=== PATIENT | female | born 1945 | race Caucasian/White ===

== ENCOUNTER 2017-03-21 20:33 | Emergency (ER) | payer MEDICARE, BC ==
[2017-03-21 20:50] VITALS: PULSE 50; RESP 18
--- NOTE | 2017-03-21 21:15 | ED ---
Upper Extremity HPI - General Chief Complaint: Extremity Injury, Upper Stated Complaint: Bruising on Arm-PT on Plavix Time Seen by Provider: 03/21/17 21:03 Source: patient Mode of arrival: ambulatory Limitations: no limitations - History of Present Illness Initial Comments: Is a 72-year-old woman who presents with complaint that she is having right forearm pain and ecchymosis. She states that she woke with these symptoms and that they seem to have worsened throughout the course of the evening. Patient states that pain is constant, moderate, aching. It is made worse if she presses on the area. She has not noted relieving factors. She states that she takes Percocet but it only helps a little bit. Patient denies any associated symptoms, she is not having fever or chills. She denies chest pain, dyspnea, palpitations, lightheadedness or syncope. She denies any weakness or numbness of the extremity. She does not recall any trauma over the previous few days that would've brought this on. She does state that she takes Plavix. Complaint: Injury to:: right, forearm Onset/Timin -: days(s) Other Extremity Injury: Forearm: Right Other Injuries: none Handedness: right Place: home Improves With: none Worsens With: other Context: other (Known) Associated Symptoms: denies other symptoms - Related Data Home Medications Medication Instructions Recorded Confirmed Allopurinol [Allopurinol] 300 mg PO DAILY 12/26/13 03/21/17 Budesonide-Formot 160-4.5 Mcg 2 puff INHALATION RT-BID 12/26/13 03/21/17 [Symbicort 160-4.5 Mcg Inhaler] Calcium Carbonate/Vitamin D3 1 tab PO DAILY 12/26/13 03/21/17 [Caltrate 600 + D Tablet] Cholecalciferol [Vitamin D3] 1,000 unit PO DAILY 12/26/13 03/21/17 FLUoxetine HCL [PROzac] 20 mg PO TID 12/26/13 03/21/17 Furosemide [Lasix] 20 mg PO QAM 12/26/13 03/21/17 Gemfibrozil [Lopid] 1,200 mg PO QAM 12/26/13 03/21/17 Isosorbide Mononitrate [Imdur] 30 mg PO DAILY 12/26/13 03/21/17 Metoprolol Tartrate [Metoprolol 50 mg PO BID 12/26/13 03/21/17 Tartrate] Nitroglycerin [Nitromist] 4.1 gm TL Q5M PRN 12/26/13 03/21/17 [place]-3 Fatty Acids [[place]-3] 2,000 mg PO DAILY 12/26/13 03/21/17 Albuterol Nebulized [Ventolin 2.5 mg INHALATION RT-TID PRN 03/21/17 03/21/17 Nebulized] Albuterol Sulfate [Proair Hfa] 1 - 2 puff INHALATION RT-Q6H PRN 03/21/17 Aspirin 81 mg PO DAILY 03/21/17 03/21/17 Janie-C 500mg 500 mg PO DAILY 03/21/17 03/21/17 Fluticasone Propionate [Flonase 1 spray EA NOSTRIL DAILY 03/21/17 03/21/17 Allergy Relief] Gemfibrozil [Lopid] 600 mg PO HS 03/21/17 03/21/17 Insulin NPH Human Isophane 6 unit SQ AC-BID 03/21/17 03/21/17 [humuLIN N] Insulin Regular [HumuLIN R] See Protocol SQ AC-TID PRN 03/21/17 03/21/17 Ipratropium Nebulized [Atrovent 0.5 mg INHALATION RT-QID PRN 03/21/17 03/21/17 Nebulized] Levothyroxine Sodium [Synthroid] 112 mcg PO DAILY 03/21/17 03/21/17 Pantoprazole [Protonix] 40 mg PO DAILY 03/21/17 03/21/17 Potassium Chloride [Klor-Con 20] 20 meq PO DAILY 03/21/17 03/21/17 oxyCODONE-APAP 10-325MG [Percocet 1 tab PO Q4H PRN 03/21/17 03/21/17 10-325 mg] Allergies Allergy/AdvReac Type Severity Reaction Status Date / Time acetaminophen Allergy Rash/Hives Verified 03/21/17 21:40 [From Tylenol-Codeine #3] adenosine Allergy Anaphylaxis Verified 03/21/17 21:40 codeine phosphate Allergy Rash/Hives Verified 03/21/17 21:40 [From Tylenol-Codeine #3] diclofenac sodium Allergy Rash/Hives Verified 03/21/17 21:40 [From Voltaren] Iodinated Contrast- Oral and Allergy Dyspnea Verified 03/21/17 21:40 IV Dye iodine Allergy Rash/Hives Verified 03/21/17 21:40 latex Allergy Rash/Hives Verified 03/21/17 21:40 lisinopril Allergy Swelling Verified 03/21/17 21:40 morphine Allergy Confusion Verified 03/21/17 21:40 nickel [Nickel] Allergy Rash/Hives Verified 03/21/17 21:40 pneumococcal vaccine Allergy Unknown Verified 03/21/17 20:50 tetanus and diphtheria Allergy Unknown Verified 03/21/17 21:40 toxoids [tetanus & diphtheria toxoids] theophylline Allergy Anaphylaxis Verified 03/21/17 21:40 tioconazole [From Monistat 1] Allergy Rash/Hives Verified 03/21/17 21:40 tolmetin sodium Allergy Rash/Hives Verified 03/21/17 21:40 [From Tolectin] metoclopramide HCl AdvReac Unknown Verified 03/21/17 21:40 [From Reglan] Review of Systems ROS Statement: Those systems with pertinent positive or pertinent negative responses have been documented in the HPI. ROS Other: All systems not noted in ROS Statement are negative. Constitutional: Denies: fever, chills, weakness Respiratory: Denies: cough, dyspnea Cardiovascular: Denies: chest pain, palpitations, syncope Skin: Denies: rash Neurological: Denies: weakness, numbness, paresthesias Hematological/Lymphatic: Reports: other (Plavix). Denies: easy bleeding Past Medical History Past Medical History: Asthma, Coronary Artery Disease (CAD), Diabetes Mellitus, Hyperlipidemia, Hypertension Additional Past Medical History / Comment(s): Lupus, spina bifida (mild) History of Any Multi-Drug Resistant Organisms: None Reported Past Surgical History: Orthopedic Surgery Additional Past Surgical History / Comment(s): surgical support of uterus, intestinal bypass, wrist surgery, cyctocele and left ovary revoed, arthroscopy knee surgery, right knee, anterior cervical discectomy with fusion, triple heart bypass, liver biopsy, myeleogram, colon scope, electormyography both arms , bilateral knee replacement. hip replacement Past Psychological History: Anxiety Smoking Status: Never smoker Past Alcohol Use History: Occasional Past Drug Use History: None Reported General Exam Limitations: no limitations General appearance: alert, in no apparent distress Respiratory exam: Present: normal lung sounds bilaterally. Absent: respiratory distress, wheezes, rales, rhonchi, stridor Cardiovascular Exam: Present: regular rate, normal rhythm, normal heart sounds Extremities exam: Present: full ROM, tenderness (Moderate tenderness over the proximal right ulna. There is no palpable deformity or step-off.), normal capillary refill. Absent: normal inspection (Ecchymosis and a small amount of soft tissue swelling, see the skin exam as well.), joint swelling Skin exam: Present: warm, dry, intact, normal color, other (There is ecchymosis to the posterior aspect of the right forearm just distal to the right elbow mainly over the posterior and ulnar aspect. Approximately 8 cm roughly ovoid area.) Course Vital Signs 03/21/17 20:46 Temperature 97.4 F L Pulse Rate 50 L Respiratory 18 Rate Blood Pressure 181/80 O2 Sat by Pulse 98 Oximetry - Reevaluation(s) Reevaluation #1: 03/21/17 21:20 Patient declines analgesics Disposition Clinical Impression: Contusion of forearm, right Disposition: HOME SELF-CARE Condition: Good Instructions: Contusion in Adults (ED) Referrals: Brandon Wu DO [Primary Care Provider] - 1-2 days
--- NOTE | 2017-03-21 21:39 | XR ---
EXAMINATION TYPE: XR forearm RT DATE OF EXAM: 03/21/2017 COMPARISON: NONE HISTORY: Pain TECHNIQUE: 2 views FINDINGS: I see no fracture nor dislocation. Wrist joint and elbow joint appear intact. IMPRESSION: Negative right forearm exam.
--- NOTE | 2017-03-21 22:18 | US ---
EXAM: US Duplex Right Upper Extremity Veins CLINICAL HISTORY: Reason: Pain TECHNIQUE: Real-time ultrasound scan of the veins of the right upper extremity with color Doppler flow, spectral waveform analysis and compression. COMPARISON: No relevant prior studies available. FINDINGS: Deep veins: Unremarkable. No DVT in the internal jugular, subclavian, axillary, or brachial veins. The veins are compressible with normal color flow and augmentation. Superficial veins: Unremarkable. No thrombus in the visualized basilic and cephalic veins. Soft tissues: At the area of the patient's bruising, there is a well- circumscribed, nonvascular, hypoechoic, parallel, ovoid lesion, measuring approximately 0.9 x 0.2 x 0.4 cm, likely representing a hematoma. IMPRESSION: 1. No evidence of DVT. 2 At the area of the patient's bruising there is a 0.9 cm hypoechoic lesion, as described above, likely representing a hematoma.
[2017-03-21 22:51] VITALS: BP 156/74; TEMP 97.9
== END 2017-03-21 22:51 | disposition home or self-care (01) ==
LOC: EC 20:33
DX: S50.11XA Contusion of right forearm, initial encounter (principal); E78.5 Hyperlipidemia, unspecified; I10 Essential (primary) hypertension; I25.10 Atherosclerotic heart disease of native coronary artery without angina pectoris; E11.9 Type 2 diabetes mellitus without complications; J45.909 Unspecified asthma, uncomplicated; Z79.51 Long term (current) use of inhaled steroids; Z79.82 Long term (current) use of aspirin; Z79.4 Long term (current) use of insulin; Z79.899 Other long term (current) drug therapy; Z88.5 Allergy status to narcotic agent; Z88.6 Allergy status to analgesic agent; Z88.7 Allergy status to serum and vaccine; Z88.8 Allergy status to other drugs, medicaments and biological substances; Z91.040 Latex allergy status; Z91.041 Radiographic dye allergy status; Z91.048 Other nonmedicinal substance allergy status; Z91.09 Other allergy status, other than to drugs and biological substances; X58.XXXA Exposure to other specified factors, initial encounter
CPT/HCPCS: 99284

== ENCOUNTER 2017-09-05 19:21 | Emergency (ER) | payer MEDICARE, BC ==
--- NOTE | 2017-09-05 20:54 | ED ---
Female Urogenital HPI - General Chief complaint: Urogenital Stated complaint: Urogenital Time Seen by Provider: 09/05/17 20:25 Source: patient Mode of arrival: ambulatory Limitations: no limitations - History of Present Illness Initial comments: 72-year-old female patient presents to the emergency department today for evaluation of urinary symptoms that started this morning. Patient states that she has been having dysuria, frequency, and urgency since foot she woke this morning. Patient states that throughout the day she has developed pain in her lower back and chills. She denies any fevers. Denies any nausea or vomiting. Denies any hematuria. States that she has had urinary tract infections in the past and symptoms are similar. Patient denies any recent rash, shortness breath , chest pain, abdominal pain, diarrhea, constipation, back pain, numbness, tingling, dizziness, weakness, headache, visual changes, or any other complaints. - Related Data Home Medications Medication Instructions Recorded Confirmed Allopurinol [Allopurinol] 300 mg PO DAILY 12/26/13 09/05/17 Budesonide-Formot 160-4.5 Mcg 2 puff INHALATION RT-BID 12/26/13 09/05/17 [Symbicort 160-4.5 Mcg Inhaler] Cholecalciferol [Vitamin D3] 4,000 unit PO HS 12/26/13 09/05/17 FLUoxetine HCL [PROzac] 20 mg PO TID 12/26/13 09/05/17 Furosemide [Lasix] 20 mg PO DAILY 12/26/13 09/05/17 Isosorbide Mononitrate [Imdur] 30 mg PO DAILY 12/26/13 09/05/17 Metoprolol Tartrate [Metoprolol 50 mg PO BID 12/26/13 09/05/17 Tartrate] Albuterol Nebulized [Ventolin 2.5 mg INHALATION RT-TID PRN 03/21/17 09/05/17 Nebulized] Albuterol Sulfate [Proair Hfa] 1 - 2 puff INHALATION RT-Q6H PRN 03/21/17 Aspirin 81 mg PO HS 03/21/17 09/05/17 Fluticasone Propionate [Flonase 1 spray EA NOSTRIL DAILY 03/21/17 09/05/17 Allergy Relief] Ipratropium Nebulized [Atrovent 0.5 mg INHALATION RT-QID PRN 03/21/17 09/05/17 Nebulized] Levothyroxine Sodium [Synthroid] 112 mcg PO DAILY 03/21/17 09/05/17 oxyCODONE-APAP 10-325MG [Percocet 1 tab PO Q4H PRN 03/21/17 09/05/17 10-325 mg] Biotin 5 mg PO DAILY 09/05/17 09/05/17 Clopidogrel Bisulfate [Plavix] 75 mg PO DAILY 09/05/17 09/05/17 Cyanocobalamin [Vitamin B-12 1,000 mcg SQ Q7D 09/05/17 09/05/17 Injection] Flaxseed Oil [[place]-3 Flaxseed Oil] 1,000 mg PO DAILY 09/05/17 09/05/17 Gabapentin 600 mg PO TID 09/05/17 09/05/17 Insulin NPH Human Isophane 6 unit SQ AC-BID 09/05/17 09/05/17 [NovoLIN N] Insulin Regular, Human [NovoLIN R] See Protocol SQ AC-TID 09/05/17 09/05/17 Mirabegron [Myrbetriq] 50 mg PO DAILY 09/05/17 09/05/17 Nitroglycerin Sl Tabs [Nitrostat] 0.4 mg SUBLINGUAL Q5M PRN 09/05/17 09/05/17 Omeprazole 20 mg PO DAILY 09/05/17 09/05/17 Potassium Chloride ER [K-Dur 10] 10 meq PO DAILY 09/05/17 09/05/17 Rosuvastatin [Crestor] 10 mg PO DAILY 09/05/17 09/05/17 Vitamin E 100 unit PO DAILY 09/05/17 09/05/17 diphenhydrAMINE HCL [Benadryl] 50 mg PO HS 09/05/17 09/05/17 Allergies Allergy/AdvReac Type Severity Reaction Status Date / Time acetaminophen Allergy Rash/Hives Verified 09/05/17 21:28 [From Tylenol-Codeine #3] adenosine Allergy Anaphylaxis Verified 09/05/17 21:28 castor oil Allergy Unknown Verified 09/05/17 21:28 codeine phosphate Allergy Rash/Hives Verified 09/05/17 21:28 [From Tylenol-Codeine #3] diclofenac sodium Allergy Rash/Hives Verified 09/05/17 21:28 [From Voltaren] Iodinated Contrast- Oral and Allergy Dyspnea Verified 09/05/17 21:28 IV Dye iodine Allergy Rash/Hives Verified 09/05/17 21:28 latex Allergy Anaphylaxis Verified 09/05/17 21:28 lisinopril Allergy Anaphylaxis Verified 09/05/17 21:28 metoclopramide HCl Allergy Unknown Verified 09/05/17 21:28 [From Reglan] nickel [Nickel] Allergy Rash/Hives Verified 09/05/17 21:28 oxybutynin [From Ditropan] Allergy Unknown Verified 09/05/17 21:28 pneumococcal vaccine Allergy Unknown Verified 09/05/17 21:28 tetanus and diphtheria Allergy Unknown Verified 09/05/17 21:28 toxoids [tetanus & diphtheria toxoids] theophylline Allergy Anaphylaxis Verified 09/05/17 21:28 tioconazole [From Monistat 1] Allergy Rash/Hives Verified 09/05/17 21:28 tolmetin sodium Allergy Rash/Hives Verified 09/05/17 21:28 [From Tolectin] atorvastatin [From Lipitor] AdvReac MUSCLE PAIN Verified 09/05/17 21:28 estrogens, conjugated AdvReac ALTERS Verified 09/05/17 21:28 [From Premarin] LIVER FUNCTION ezetimibe [From Zetia] AdvReac MUSCLE PAIN Verified 09/05/17 21:28 morphine AdvReac Confusion Verified 09/05/17 21:28 pravastatin [From Pravachol] AdvReac MUSCLE PAIN Verified 09/05/17 21:28 MEDICAL TESING DYES Allergy Anaphylaxis Uncoded 09/05/17 21:28 Review of Systems ROS Statement: Those systems with pertinent positive or pertinent negative responses have been documented in the HPI. ROS Other: All systems not noted in ROS Statement are negative. Past Medical History Past Medical History: Asthma, Coronary Artery Disease (CAD), Diabetes Mellitus, Hyperlipidemia, Hypertension Additional Past Medical History / Comment(s): Lupus, spina bifida (mild) History of Any Multi-Drug Resistant Organisms: None Reported Past Surgical History: Orthopedic Surgery Additional Past Surgical History / Comment(s): surgical support of uterus, intestinal bypass, wrist surgery, cyctocele and left ovary revoed, arthroscopy knee surgery, right knee, anterior cervical discectomy with fusion, triple heart bypass, liver biopsy, myeleogram, colon scope, electormyography both arms , bilateral knee replacement. hip replacement Past Psychological History: Anxiety Smoking Status: Never smoker Past Alcohol Use History: Occasional Past Drug Use History: None Reported General Exam Limitations: no limitations General appearance: alert, in no apparent distress, other (This is a well- developed, well-nourished, well-appearing 72-year-old female patient in no acute distress. Vital signs upon presentation are temperature 98.2F, pulse 72 , respirations 18, blood pressure 182/82, pulse ox 97% on room air.) Eye exam: Present: normal appearance, PERRL, EOMI. Absent: scleral icterus, conjunctival injection, periorbital swelling ENT exam: Present: normal exam, normal oropharynx, mucous membranes moist Respiratory exam: Present: normal lung sounds bilaterally. Absent: respiratory distress, wheezes, rales, rhonchi, stridor Cardiovascular Exam: Present: regular rate, normal rhythm, normal heart sounds. Absent: systolic murmur, diastolic murmur, rubs, gallop, clicks GI/Abdominal exam: Present: soft, normal bowel sounds. Absent: distended, tenderness, guarding, rebound, rigid Back exam: Present: normal inspection. Absent: CVA tenderness (R), CVA tenderness (L) Neurological exam: Present: alert, oriented X3, CN II-XII intact Psychiatric exam: Present: normal affect, normal mood Skin exam: Present: warm, dry, intact, normal color. Absent: rash Course Vital Signs 09/05/17 09/05/17 19:38 22:00 Temperature 98.2 F 97 F L Pulse Rate 72 53 L Respiratory 18 20 Rate Blood Pressure 182/82 136/71 O2 Sat by Pulse 97 94 L Oximetry Medical Decision Making - Medical Decision Making 72-year-old female patient presented to the emergency department stay for complaints of dysuria, urinary urgency, and urinary frequency. Physical examination is unremarkable. There is no CVA tenderness. No abdominal tenderness. Urinalysis was obtained and showed no acute abnormalities. I did discuss findings with the patient. Did offer to perform further evaluation workup. She denied at this time stating that she does have a 0.0 with her primary care physician on Friday. She feels well enough to be discharged home at this time. We did perform urine culture. She is instructed to return here immediately for any new, worsening, or concerning symptoms. She verbalizes understanding and agrees with this plan. - Lab Data Lab Results 09/05/17 Range/Units 20:56 Urine Color Yellow Urine Appearance Clear (Clear) Urine pH 5.0 (5.0-8.0) Ur Specific [place] 1.013 (1.001-1.035) Urine Protein Negative (Negative) Urine Glucose (UA) Negative (Negative) Urine Ketones Negative (Negative) Urine Blood Negative (Negative) Urine Nitrite Negative (Negative) Urine Bilirubin Negative (Negative) Urine Urobilinogen <2.0 (<2.0) mg/dL Ur Leukocyte Esterase Negative (Negative) Disposition Clinical Impression: Urinary urgency Disposition: HOME SELF-CARE Condition: Good Instructions: Dysuria (ED) Additional Instructions: Increase water intake. Follow-up with your primary care physician as you have planned. Return here immediately for any new, worsening, or concerning symptoms. Referrals: Brandon Wu DO [Primary Care Provider] - 1-2 days Time of Disposition: 21:27
[2017-09-05 21:05] LABS: Appearance,Urine Clear (Clear); Bilirubin,Urine Negative (Negative); Blood,Urine Negative (Negative); Color,Urine Yellow; Glucose,Urine (UA) Negative (Negative); Ketones,Urine Negative (Negative); Leukocyte Esterase,Urine Negative (Negative); Nitrite,Urine Negative (Negative); Protein,Urine Negative (Negative); Specific Gravity,Urine 1.013 (1.001-1.035); Urobilinogen,Urine <2.0 mg/dL (<2.0)
[2017-09-05 22:01] VITALS: BP 136/71; PULSE 53; RESP 20; TEMP 97
== END 2017-09-05 22:00 | disposition home or self-care (01) ==
LOC: EC 19:21
DX: R39.15 Urgency of urination (principal); R30.0 Dysuria; R35.0 Frequency of micturition; M54.5 Low back pain; R68.83 Chills (without fever); Q05.9 Spina bifida, unspecified; E78.5 Hyperlipidemia, unspecified; I10 Essential (primary) hypertension; I25.10 Atherosclerotic heart disease of native coronary artery without angina pectoris; E11.9 Type 2 diabetes mellitus without complications; J45.909 Unspecified asthma, uncomplicated; F41.9 Anxiety disorder, unspecified; Z79.02 Long term (current) use of antithrombotics/antiplatelets; Z79.4 Long term (current) use of insulin; Z79.82 Long term (current) use of aspirin; Z79.899 Other long term (current) drug therapy; Z88.5 Allergy status to narcotic agent; Z88.7 Allergy status to serum and vaccine; Z88.8 Allergy status to other drugs, medicaments and biological substances; Z91.040 Latex allergy status; Z91.041 Radiographic dye allergy status; Z91.048 Other nonmedicinal substance allergy status; Z87.440 Personal history of urinary (tract) infections
CPT/HCPCS: 81003; 87077; 87086; 87186; 99283

== ENCOUNTER 2018-09-12 12:40 | Emergency (ER) | payer MEDICARE, BC ==
[2018-09-12 12:49] VITALS: BP 113/67; PULSE 80; RESP 18; TEMP 97.7
[2018-09-12] MEDS ORDERED: oxyCODONE-APAP 5-325MG 1 EACH TAB PO STA (13:25)
[2018-09-12] MEDS ORDERED: LIDOCAINE/EPINEPHR/TETRACAINE 5 ML BOTTLE TOPICAL ONE (13:27)
--- NOTE | 2018-09-12 13:28 | ED ---
General Adult HPI - General Source: patient, RN notes reviewed Mode of arrival: wheelchair Limitations: no limitations <Enoch Angulo - Last Filed: 09/12/18 16:20> <Nolan Colvin - Last Filed: 09/12/18 16:29> - General Chief complaint: Fall Stated complaint: Fall-Head injury Time Seen by Provider: 09/12/18 12:57 - History of Present Illness Initial comments: 73-year-old female with a past medical history of asthma, CAD, diabetes, hyperlipidemia, hypertension presents to the emergency department for a chief of head injury occurring about one hour prior to arrival. Patient states she was closing the fridge and went to turn when the sole of her shoe stuck to the Tylenol. Patient states this caused her to trip and fall. Patient hit the side of her head on the floor. Patient also complaining of neck pain although this is chronic but somewhat worsened than normal. No midline neck pain. Patient does take Plavix. Patient states there is a small laceration. Patient did not see a tetanus that is ALLERGIC to the tetanus vaccination so can not take it. Patient is complaining of pain mostly above the right eye. Patient has no other complaints at this time including shortness of breath, chest pain, abdominal pain, nausea or vomiting, headache, or visual changes. (Enoch Angulo) - Related Data Home Medications Medication Instructions Recorded Confirmed Allopurinol 300 mg PO DAILY 12/26/13 09/05/17 Budesonide-Formot 160-4.5 Mcg 2 puff INHALATION RT-BID 12/26/13 09/05/17 [Symbicort 160-4.5 Mcg Inhaler] Cholecalciferol [Vitamin D3] 4,000 unit PO HS 12/26/13 09/05/17 FLUoxetine HCL [PROzac] 20 mg PO TID 12/26/13 09/05/17 Furosemide [Lasix] 20 mg PO DAILY 12/26/13 09/05/17 Isosorbide Mononitrate [Imdur] 30 mg PO DAILY 12/26/13 09/05/17 Metoprolol Tartrate 50 mg PO BID 12/26/13 09/05/17 Albuterol Nebulized [Ventolin 2.5 mg INHALATION RT-TID PRN 03/21/17 09/05/17 Nebulized] Albuterol Sulfate [Proair Hfa] 1 - 2 puff INHALATION RT-Q6H PRN 03/21/17 Aspirin 81 mg PO HS 03/21/17 09/05/17 Fluticasone Propionate [Flonase 1 spray EA NOSTRIL DAILY 03/21/17 09/05/17 Allergy Relief] Ipratropium Nebulized [Atrovent 0.5 mg INHALATION RT-QID PRN 03/21/17 09/05/17 Nebulized] Levothyroxine Sodium [Synthroid] 112 mcg PO DAILY 03/21/17 09/05/17 oxyCODONE-APAP 10-325MG [Percocet 1 tab PO Q4H PRN 03/21/17 09/05/17 10-325 mg] Biotin 5 mg PO DAILY 09/05/17 09/05/17 Clopidogrel Bisulfate [Plavix] 75 mg PO DAILY 09/05/17 09/05/17 Cyanocobalamin [Vitamin B-12 1,000 mcg SQ Q7D 09/05/17 09/05/17 Injection] Flaxseed Oil [Gardena-3 Flaxseed Oil] 1,000 mg PO DAILY 09/05/17 09/05/17 Gabapentin 600 mg PO TID 09/05/17 09/05/17 Insulin NPH Human Isophane 6 unit SQ AC-BID 09/05/17 09/05/17 [NovoLIN N] Insulin Regular, Human [NovoLIN R] See Protocol SQ AC-TID 09/05/17 09/05/17 Mirabegron [Myrbetriq] 50 mg PO DAILY 09/05/17 09/05/17 Nitroglycerin Sl Tabs [Nitrostat] 0.4 mg SUBLINGUAL Q5M PRN 09/05/17 09/05/17 Omeprazole 20 mg PO DAILY 09/05/17 09/05/17 Potassium Chloride ER [K-Dur 10] 10 meq PO DAILY 09/05/17 09/05/17 Rosuvastatin [Crestor] 10 mg PO DAILY 09/05/17 09/05/17 Vitamin E 100 unit PO DAILY 09/05/17 09/05/17 diphenhydrAMINE HCL [Benadryl] 50 mg PO HS 09/05/17 09/05/17 Allergies Allergy/AdvReac Type Severity Reaction Status Date / Time acetaminophen Allergy Rash/Hives Verified 09/12/18 12:49 [From Tylenol-Codeine #3] adenosine Allergy Anaphylaxis Verified 09/12/18 12:49 castor oil Allergy Unknown Verified 09/12/18 12:49 codeine phosphate Allergy Rash/Hives Verified 09/12/18 12:49 [From Tylenol-Codeine #3] diclofenac sodium Allergy Rash/Hives Verified 09/12/18 12:49 [From Voltaren] Iodinated Contrast- Oral and Allergy Dyspnea Verified 09/12/18 12:49 IV Dye iodine Allergy Rash/Hives Verified 09/12/18 12:49 latex Allergy Anaphylaxis Verified 09/12/18 12:49 lisinopril Allergy Anaphylaxis Verified 09/12/18 12:49 metoclopramide HCl Allergy Unknown Verified 09/12/18 12:49 [From Reglan] nickel [Nickel] Allergy Rash/Hives Verified 09/12/18 12:49 oxybutynin [From Ditropan] Allergy Unknown Verified 09/12/18 12:49 pneumococcal vaccine Allergy Unknown Verified 09/12/18 12:49 tetanus and diphtheria Allergy Unknown Verified 09/12/18 12:49 toxoids [tetanus & diphtheria toxoids] theophylline Allergy Anaphylaxis Verified 09/12/18 12:49 tioconazole [From Monistat 1] Allergy Rash/Hives Verified 09/12/18 12:49 tolmetin sodium Allergy Rash/Hives Verified 09/12/18 12:49 [From Tolectin] atorvastatin [From Lipitor] AdvReac MUSCLE PAIN Verified 09/12/18 12:49 estrogens, conjugated AdvReac ALTERS Verified 09/12/18 12:49 [From Premarin] LIVER FUNCTION ezetimibe [From Zetia] AdvReac MUSCLE PAIN Verified 09/12/18 12:49 morphine AdvReac Confusion Verified 09/12/18 12:49 pravastatin [From Pravachol] AdvReac MUSCLE PAIN Verified 09/12/18 12:49 MEDICAL TESING DYES Allergy Anaphylaxis Uncoded 09/12/18 12:49 Review of Systems ROS Other: All systems not noted in ROS Statement are negative. <Enoch Angulo - Last Filed: 09/12/18 16:20> ROS Other: All systems not noted in ROS Statement are negative. <Nolan Colvin - Last Filed: 09/12/18 16:29> ROS Statement: Those systems with pertinent positive or pertinent negative responses have been documented in the HPI. Past Medical History Past Medical History: Asthma, Coronary Artery Disease (CAD), Diabetes Mellitus, Hyperlipidemia, Hypertension Additional Past Medical History / Comment(s): Lupus, spina bifida (mild) History of Any Multi-Drug Resistant Organisms: None Reported Past Surgical History: Orthopedic Surgery Additional Past Surgical History / Comment(s): surgical support of uterus, intestinal bypass, wrist surgery, cyctocele and left ovary revoed, arthroscopy knee surgery, right knee, anterior cervical discectomy with fusion, triple heart bypass, liver biopsy, myeleogram, colon scope, electormyography both arms , bilateral knee replacement. hip replacement Past Psychological History: Anxiety Smoking Status: Never smoker Past Alcohol Use History: Occasional Past Drug Use History: None Reported <Enoch Angulo P - Last Filed: 09/12/18 16:20> General Exam Limitations: no limitations General appearance: alert, in no apparent distress Head exam: Absent: atraumatic (There is a 2 cm laceration noted to the right parietal scalp) Eye exam: Present: normal appearance, PERRL, EOMI. Absent: scleral icterus, conjunctival injection, periorbital swelling, other (Negative raccoon sign) ENT exam: Present: normal exam, normal oropharynx, mucous membranes moist, TM's normal bilaterally (Negative hemotympanum), normal external ear exam (Negative Govea sign) Neck exam: Present: normal inspection, full ROM. Absent: tenderness, meningismus, lymphadenopathy Respiratory exam: Present: normal lung sounds bilaterally. Absent: respiratory distress, wheezes, rales, rhonchi, stridor Cardiovascular Exam: Present: regular rate, normal rhythm, normal heart sounds. Absent: systolic murmur, diastolic murmur, rubs, gallop, clicks GI/Abdominal exam: Present: soft, normal bowel sounds. Absent: distended, tenderness, guarding, rebound, rigid Back exam: Absent: vertebral tenderness (No thoracic or lumbar spine pain.) Neurological exam: Present: alert, oriented X3, CN II-XII intact Expanded Patient oriented to: Present: person, place, time Speech: Present: fluid speech Cranial nerves: EOM's Intact: Normal, Nystagmus: Normal, Facial Sensation: Normal Cerebellar function: Finger to Nose: Normal Upper motor neuron: Pronator Drift: Normal Sensory exam: Upper Extremity Light Touch: Normal, Upper Extremity Pin Prick: Normal, Lower Extremity Light Touch: Normal, Lower Extremity Pin Prick: Normal Motor strength exam: RUE: 5, LUE: 5, RLE: 5, LLE: 5 Eye Response: (4) open spontaneously Motor Response: (6) obeys commands Verbal Response: (5) oriented Kat Total: 15 Psychiatric exam: Present: normal affect, normal mood <Enoch Angulo - Last Filed: 09/12/18 16:20> Course <Enoch Angulo - Last Filed: 09/12/18 16:20> <Nolan Colvin - Last Filed: 09/12/18 16:29> Vital Signs 09/12/18 12:46 Temperature 97.7 F Pulse Rate 80 Respiratory 18 Rate Blood Pressure 113/67 O2 Sat by Pulse 97 Oximetry - Reevaluation(s) Reevaluation #1: 09/12/18 16:28 PA supervision: I proceeded [id number] evaluation patient did discuss findings with her and her family. Patient did fall demonstrate a scalp laceration which was repaired by the physician review assistant. CAT scans are negative for acute findings patient is awake alert oriented 3 with a Kat Coma Scale of 15 I do agree with the assessment and plan. (Nolan Colvin) Procedures - Laceration Laceration #1 Consent Obtained: verbal consent Indication: laceration Site: other (scalp) Size (cm): 2 Description: linear Depth: simple, single layer Anesthetic Used: lidocaine 1% Anesthesia Technique: local infiltration Amount (mls): 2 Pre-repair: wound explored, irrigated extensively Type of Sutures: other (jhony) Number of Sutures: 4 Technique: simple, interrupted Patient Tolerated Procedure: well, no complications <Enoch Angulo - Last Filed: 09/12/18 16:20> Medical Decision Making <Enoch Angulo - Last Filed: 09/12/18 16:20> <Nolan Colvin - Last Filed: 09/12/18 16:29> - Medical Decision Making Patient had a trip and fall earlier today. No focal neuro deficits. Patient complaining of mild headache radiating to the back of the head. GRIDER starts above the right eye. IOP of the right eye is 15, left eye 10. CT neck shows no obvious acute fracture or dislocation evident. CT brain shows no acute intracranial hemorrhage mass effect or midline shift. Patient's laceration was stapled with 4 jhony. Discussed returning in 10 days to have jhony removed. Discussed concussion precautions. Discussed returning if she has worsening symptoms. (Enoch Angulo) Disposition Is patient prescribed a controlled substance at d/c from ED?: No Time of Disposition: 16:19 <Enoch Angulo - Last Filed: 09/12/18 16:20> <Nolan Colvin - Last Filed: 09/12/18 16:29> Clinical Impression: Head injury, Laceration Disposition: HOME SELF-CARE Condition: Good Instructions (If sedation given, give patient instructions): Laceration (ED), Concussion (ED), Staple Care (ED) Additional Instructions: Please have jhony removed in 10 days. Take Tylenol for pain. Take your Percocet if pain is severe. If symptoms are worsening or return here to the emergency department. Otherwise follow-up with primary care in 1-2 days. Referrals: Brandon Wu DO [Primary Care Provider] - 1-2 days
--- NOTE | 2018-09-12 14:18 | CT ---
EXAMINATION TYPE: CT brain sanna gooden DATE OF EXAM: 09/12/2018 COMPARISON: NONE HISTORY: Fall, trauma, pain, head injury CT DLP: 1246.10 mGycm. Automated Exposure Control for Dose Reduction was Utilized. TECHNIQUE: CT scan of the head and cervical spine are performed without contrast. FINDINGS: There is no acute intracranial hemorrhage, mass effect, or midline shift identified. The ventricles and sulci are within normal limits in size. The globes are intact and the visualized sin uses are clear. Posterior and anterior cervical hardware fusion is evident. The resultant beam hardening artifact sig nificantly limits evaluation at affected levels. This hardware appears intact. Prevertebral soft tis jay appears within normal limits. The C1-C2 articulation is unremarkable. The dens is intact. Limited evaluation of the lung apices are unremarkable. The sternotomy wires are evident. IMPRESSION: 1. Limited evaluation of cervical spine secondary to artifact from extensive postsurgical hardware. T here is no obvious acute fracture or dislocation evident in the cervical spine. 2. No acute intracranial hemorrhage, mass effect, or midline shift..
[2018-09-12] MEDS ORDERED: HYDROmorphone 0.5 MG/0.5 ML SYRINGE IM STA (14:41)
[2018-09-12] MEDS ORDERED: LIDOCAINE 1% INJ 10MG/ML (20 ML MDV) SQ ONE (14:48)
== END 2018-09-12 16:23 | disposition home or self-care (01) ==
LOC: EC 12:40
DX: S01.01XA Laceration without foreign body of scalp, initial encounter (principal); M54.2 Cervicalgia; G89.29 Other chronic pain; Q05.9 Spina bifida, unspecified; J45.909 Unspecified asthma, uncomplicated; I25.10 Atherosclerotic heart disease of native coronary artery without angina pectoris; E11.9 Type 2 diabetes mellitus without complications; E78.5 Hyperlipidemia, unspecified; I10 Essential (primary) hypertension; F41.9 Anxiety disorder, unspecified; Z91.041 Radiographic dye allergy status; Z88.5 Allergy status to narcotic agent; Z88.6 Allergy status to analgesic agent; Z88.7 Allergy status to serum and vaccine; Z88.8 Allergy status to other drugs, medicaments and biological substances; Z91.040 Latex allergy status; Z91.048 Other nonmedicinal substance allergy status; Z79.02 Long term (current) use of antithrombotics/antiplatelets; Z79.4 Long term (current) use of insulin; Z79.51 Long term (current) use of inhaled steroids; Z79.82 Long term (current) use of aspirin; Z79.890 Hormone replacement therapy; Z79.899 Other long term (current) drug therapy; Z98.1 Arthrodesis status; Z96.653 Presence of artificial knee joint, bilateral; Z96.649 Presence of unspecified artificial hip joint; W01.198A Fall on same level from slipping, tripping and stumbling with subsequent striking against other object, initial encounter; Y93.89 Activity, other specified
CPT/HCPCS: 72125; 70450; 99283; 12001; 96372; J2001; J1170

== ENCOUNTER → 2018-09-21 | Outpatient (CLI) | payer MEDICARE, BC ==
--- NOTE | 2018-09-21 14:35 | CT ---
EXAMINATION TYPE: CT brain wo con DATE OF EXAM: 09/21/2018 COMPARISON: 09/12/2018 HISTORY: Multiple falls. Posttraumatic headache. Follow up scan per patient CT DLP: 1121 mGycm Automated exposure control for dose reduction was used. TECHNIQUE: CT scan of the head is performed without contrast. FINDINGS: There is no acute intracranial hemorrhage or midline shift identified. There is diffuse v entricular and sulcal prominence consistent with diffuse age-related cerebral atrophy. There is low- attenuation in the periventricular white matter consistent with chronic small vessel ischemic change. The globes are intact and the visualized sinuses are clear. IMPRESSION: No acute intracranial hemorrhage or midline shift. There is diffuse age-related cerebra l atrophy and chronic small vessel ischemic change noted.
== END | disposition home or self-care (01) ==
LOC: RADCTMAIN 13:13
PROVIDERS: ATTEND Physician Assistant Medical
DX: G31.1 Senile degeneration of brain, not elsewhere classified (principal); I67.82 Cerebral ischemia; G44.309 Post-traumatic headache, unspecified, not intractable; S01.01XD Laceration without foreign body of scalp, subsequent encounter
CPT/HCPCS: 70450

== ENCOUNTER 2018-10-20 07:48 | Day surgery (SDC) | payer MEDICARE, BC ==
[2018-10-09 18:57] VITALS: BMI 37.0
[~2018-10-20 07:48] MED LIST: DEXAMETHASONE SOD PHOSPHATE 10 MG/ML 1 ML VIAL IV ONE; HYDROmorphone 0.5 MG/0.5 ML SYRINGE IVP PRN; LACTATED RINGERS 1,000 ML IV SCH; LIDOCAINE 1% 20 ML VIAL (10MG/ML) FOR IV START INTRADERMA PRN; MIDAZOLAM 2 MG/2 ML VIAL IV PRN; ONDANSETRON 4 MG/2 ML VIAL IVP ONE; SCOPOLAMINE 1.5MG/72HR PATCH TRANSDERM ONE; ceFAZolin IN SWFI 2 GM/20 ML SYRINGE IVP ONE
[2018-10-20 08:40] VITALS: TEMP 97.8
[2018-10-20] MEDS ORDERED: LACTATED RINGERS 1,000 ML IV ONE (08:42)
[2018-10-20 08:52] LABS: Glucose,Whole Blood 125 mg/dL (75-99)
[2018-10-20] MEDS ORDERED: BUPIVACAINE (PF) 0.5% 30 ML VIAL SQ ONE ×3 (09:06→09:32)
[2018-10-20] MEDS ORDERED: LIDOCAINE 2% INJ 20 MG/ML SQ ONE ×3 (09:07→09:32)
[2018-10-20] MEDS ORDERED: PROPOFOL 10 MG/ML 20 ML VIAL IV ONE (09:23)
[2018-10-20 09:55] VITALS: RESP 16
[2018-10-20 10:08] VITALS: BP 134/78; PULSE 66
--- NOTE | 2018-10-20 13:58 | OP ---
OPERATIVE REPORT DATE OF SURGERY: 10/20/2018 PREOPERATIVE DIAGNOSES: 1. Right index trigger finger. 2. Right ring trigger finger. FINAL DIAGNOSES: 1. Right index trigger finger. 2. Right ring trigger finger. PROCEDURE: Release of right index and right ring trigger fingers. The following procedure was done identically for each of the two fingers through separate incisions at the base of the finger in the distal palmar skin crease. A transverse incision was made in the proximal skin crease of the middle finger. Blunt dissection was taken through the subcutaneous tissue to identify the neurovascular bundles. They were kept in view and gently retracted out of harm's way while a longitudinal release of the A1 edgardo was performed. The flexor pollicis longus was examined and slight swelling was noted but the tendon was intact. The tendon was gently retracted from the wound to ensure no adhesion. The wound was then thoroughly irrigated, tourniquet released. Hemostasis was acquired and the skin was closed with 5-0 nylon suture. Soft bulky dressing applied. The patient was taken to the recovery room in satisfactory condition. MMODL / IJN: [id number] /
== END 2018-10-20 10:15 | disposition home or self-care (01) ==
LOC: OR 07:48
PROVIDERS: ATTEND Orthopaedic Surgery Hand Surgery
DX: M65.321 Trigger finger, right index finger (principal); M65.341 Trigger finger, right ring finger; F32.9 Major depressive disorder, single episode, unspecified; L65.9 Nonscarring hair loss, unspecified; E11.42 Type 2 diabetes mellitus with diabetic polyneuropathy; Z79.84 Long term (current) use of oral hypoglycemic drugs; M32.9 Systemic lupus erythematosus, unspecified; Q05.9 Spina bifida, unspecified; I10 Essential (primary) hypertension; K21.9 Gastro-esophageal reflux disease without esophagitis; E03.9 Hypothyroidism, unspecified; J45.909 Unspecified asthma, uncomplicated; Q87.43 Marfan syndrome with skeletal manifestation; M10.9 Gout, unspecified; I25.2 Old myocardial infarction; Z95.1 Presence of aortocoronary bypass graft; Z98.84 Bariatric surgery status; G47.33 Obstructive sleep apnea (adult) (pediatric); Z99.89 Dependence on other enabling machines and devices; Z79.82 Long term (current) use of aspirin; Z79.890 Hormone replacement therapy; Z79.02 Long term (current) use of antithrombotics/antiplatelets; Z79.51 Long term (current) use of inhaled steroids; Z79.899 Other long term (current) drug therapy; Z88.6 Allergy status to analgesic agent; Z91.041 Radiographic dye allergy status; Z91.040 Latex allergy status; Z88.5 Allergy status to narcotic agent; Z88.7 Allergy status to serum and vaccine; Z88.8 Allergy status to other drugs, medicaments and biological substances; Z91.048 Other nonmedicinal substance allergy status; Z91.09 Other allergy status, other than to drugs and biological substances
CPT/HCPCS: 26055 ×2; J2001; J1100; J2405; J2704

== ENCOUNTER → 2022-05-24 | Outpatient (CLI) | payer MEDICARE ==
--- NOTE | 2022-05-24 15:38 | US ---
EXAMINATION TYPE: US thyroid st tissue head/neck DATE OF EXAM: 05/24/2022 COMPARISON: NONE CLINICAL HISTORY: E03.9 hypothyroidism E04.1 single thyroid nodule. hypothyroidism, patient on medica tion GLAND SIZE: Right Lobe: 3.4 x 1.1 x 0.9 cm Overall Parenchyma: homogenous Left Lobe: 2.9 x 0.7 x 0.8 cm Overall Parenchyma: homogeneous Isthmus Thickness: 0.2 cm NODULES RIGHT: # of nodules measured on right: 0 LEFT: # of nodules measured on left: 0 ISTHMUS: # of nodules measured in the isthmus: 0 Bilateral neck scanned, no evidence of lymphadenopathy. IMPRESSION: No distinct nodularity appreciated at this time.
== END | disposition home or self-care (01) ==
LOC: RADUSWWP 14:59
PROVIDERS: ATTEND Family Medicine
DX: E04.1 Nontoxic single thyroid nodule (principal); E03.9 Hypothyroidism, unspecified
CPT/HCPCS: 76536

== ENCOUNTER 2022-07-28 16:45 | Emergency (ER) | payer MEDICARE ==
[2022-07-28 17:03] VITALS: BP 195/91; PULSE 71; RESP 20; TEMP 97.5
--- NOTE | 2022-07-28 17:44 | XR ---
EXAMINATION TYPE: XR shoulder complete LT DATE OF EXAM: 07/28/2022 5:39 PM INDICATION: Patient age:Female; 77 years old; Reason for study: fall pain left arm; COMPARISON: No relevant priors TECHNIQUE: The left shoulder was examined in AP, internally rotated and scapular Y projections. . FINDINGS: No evidence of acute osseous pathology, joint dislocation, or soft tissue swelling. The remaining por tions of the visualized chest are unremarkable. Degenerative changes of the left shoulder and acromio clavicular joint. Partially visualized surgical changes of the cervical spine and mediastinum. IMPRESSION: Degenerative changes of the left shoulder joint without evidence for acute osseous abnormality.
--- NOTE | 2022-07-28 17:52 | XR ---
EXAMINATION TYPE: XR wrist complete LT DATE OF EXAM: 07/28/2022 5:43 PM INDICATION: Patient age:Female; 77 years old; Reason for study: fall pain left arm; [facility]. COMPARISON: Left wrist radiographs 11/15/2015 TECHNIQUE: 4 views of the left wrist. Frontal, navicular, lateral, and oblique. FINDINGS: Buckling along the medial margin of the distal radius, consistent with healing femoral fracture. No e vidence for acute fracture or dislocation. Stable well-corticated density adjacent to the ulnar stylo id. Degenerative changes of the first carpometacarpal joint. Asymmetric joint space narrowing with casanova bchondral sclerosis of the scaphoid and radius at the radiocarpal joint. There is abnormal widening o f the scapholunate interval. Diffuse soft tissue swelling of the wrist. IMPRESSION: 1. No evidence for acute fracture or dislocation. 2. Widening of the scapholunate interval concerning for ligamentous injury. 3. Diffuse soft tissue swelling of the wrist, concerning for underlying soft tissue injury. 4. Remote fracture of the distal radius.
--- NOTE | 2022-07-28 17:58 | XR ---
EXAMINATION TYPE: XR elbow complete LT DATE OF EXAM: 07/28/2022 5:46 PM INDICATION: Patient age:Female; 77 years old; Reason for study: fall pain left arm; [facility]. COMPARISON: No relevant priors. TECHNIQUE: The left elbow was examined in AP, lateral, and oblique projections. FINDINGS: Increased sclerosis and bony overgrowth of the humerus lateral epicondyle. Mild degenerative changes of the elbow joint including increased sclerosis of the olecranon and coronoid articular surfaces. No evidence for significant soft tissue swelling or radiopaque foreign bodies. No appreciable joint eff usion. IMPRESSION: 1. No evidence of acute displaced fracture or dislocation. 2. Sclerotic appearance of the lateral condyle, this is favored to represent a remote injury with sup erimposed osteoarthritis. Correlate with point tenderness.
[2022-07-28] MEDS ORDERED: HYDROcodone/APAP 5-325MG 1 EACH TAB PO STA ×2 (18:49→20:10)
[2022-07-28] MEDS ORDERED: ONDANSETRON ODT 4 MG TAB PO STA (18:49)
--- NOTE | 2022-07-28 18:59 | ED ---
General Adult HPI - General Chief complaint: Extremity Injury, Upper Stated complaint: Fall, L. Shoulder Injury Time Seen by Provider: 07/28/22 18:26 Source: patient, family, RN notes reviewed Mode of arrival: wheelchair Limitations: no limitations - History of Present Illness Initial comments: 77-year-old female presents to the emergency Department with complaints of left arm pain status post trip and fall. Patient states she was moving heavy boxes of [employer] decorations when her toe caught on the carpet and she tripped and fell. States she extended her left arm out in front of her right her fall. States pain extends from her left shoulder to her left hand. Has chronic deformity left wrist which is not new for her. Pain with palpation of the left forearm and elbow. Decreased range of motion to the left shoulder. Applied ice prior to arrival. Did not take anything to treat her pain. Did not hit her head. Complains of aching discomfort in her neck and back and shoulders and hips. No focal area of tenderness aside from the left arm. No dizziness, headache, blurry vision, loss of consciousness, chest pain, shortness of breath, abdominal pain, nausea, vomiting, diarrhea, or dysuria. - Related Data Home Medications Medication Instructions Recorded Confirmed Budesonide-Formot 160-4.5 Mcg 2 puff INHALATION RT-BID 12/26/13 07/28/22 [Symbicort 160-4.5 Mcg Inhaler] FLUoxetine HCL [PROzac] 20 mg PO TID 12/26/13 07/28/22 Metoprolol Tartrate 50 mg PO BID 12/26/13 07/28/22 allopurinoL [Allopurinol] 300 mg PO DAILY 12/26/13 07/28/22 Clopidogrel Bisulfate [Plavix] 75 mg PO DAILY 09/05/17 07/28/22 Nitroglycerin Sl Tabs [Nitrostat] 0.4 mg SUBLINGUAL Q5M PRN 09/05/17 07/28/22 Acetaminophen [Tylenol Extra 500 mg PO Q6H PRN 07/28/22 07/28/22 Strength] Levothyroxine Sodium [Synthroid] 150 mcg PO MOTUWETHFRSA 07/28/22 07/28/22 Meloxicam [Mobic] 15 mg PO DAILY PRN 07/28/22 07/28/22 Previous Rx's Medication Instructions Recorded HYDROcodone/APAP 5-325MG [[place] 5] 1 each PO Q6HR PRN #12 tab 07/28/22 Allergies Allergy/AdvReac Type Severity Reaction Status Date / Time Sulfa (Sulfonamide Allergy Unknown Nausea & Verified 07/28/22 19:47 Antibiotics) Vomiting acetaminophen Allergy Rash/Hives Verified 07/28/22 19:47 [From Tylenol-Codeine #3] adenosine Allergy Anaphylaxis Verified 07/28/22 19:47 castor oil Allergy Nausea & Verified 07/28/22 19:47 Vomiting codeine phosphate Allergy Rash/Hives Verified 07/28/22 19:47 [From Tylenol-Codeine #3] diclofenac sodium Allergy Rash/Hives Verified 07/28/22 19:47 [From Voltaren] Iodinated Contrast Media Allergy Dyspnea Verified 07/28/22 19:47 [Iodinated Contrast- Oral and IV Dye] iodine Allergy Rash/Hives Verified 07/28/22 19:47 latex Allergy Anaphylaxis, Verified 07/28/22 19:47 Rash/Hives lisinopril Allergy Anaphylaxis Verified 07/28/22 19:47 metoclopramide HCl Allergy Confusion Verified 07/28/22 19:47 [From Reglan] naproxen Allergy Swelling/It Verified 07/28/22 19:47 deann nickel [Nickel] Allergy Rash/Hives, Verified 07/28/22 19:47 Blisters oxybutynin [From Ditropan] Allergy Nausea & Verified 07/28/22 19:47 Vomiting pneumococcal vaccine Allergy Unknown Verified 07/28/22 19:47 tetanus and diphtheria Allergy Unknown Verified 07/28/22 19:47 toxoids [tetanus & diphtheria toxoids] theophylline Allergy Anaphylaxis Verified 07/28/22 19:47 tioconazole [From Monistat 1] Allergy Rash/Hives Verified 07/28/22 19:47 tolmetin sodium Allergy Rash/Hives Verified 07/28/22 19:47 [From Tolectin] atorvastatin [From Lipitor] AdvReac MUSCLE PAIN Verified 07/28/22 19:47 estrogens, conjugated AdvReac ALTERS Verified 07/28/22 19:47 [From Premarin] LIVER FUNCTION ezetimibe [From Zetia] AdvReac MUSCLE PAIN Verified 07/28/22 19:47 morphine AdvReac Confusion Verified 07/28/22 19:47 pravastatin [From Pravachol] AdvReac MUSCLE PAIN Verified 07/28/22 19:47 DIAL SOAP Allergy Unknown Rash/Hives Uncoded 10/09/18 18:30 MEDICAL TESING DYES Allergy Anaphylaxis Uncoded 10/09/18 17:37 Review of Systems ROS Statement: Those systems with pertinent positive or pertinent negative responses have been documented in the HPI. ROS Other: All systems not noted in ROS Statement are negative. Past Medical History Past Medical History: Asthma, Coronary Artery Disease (CAD), Chest Pain / Angina, Diabetes Mellitus, Deep Vein Thrombosis (DVT), GERD/Reflux, Hyperlipidemia, Hypertension, Myocardial Infarction ([place]), Renal Disease Additional Past Medical History / Comment(s): Lupus, spina bifida (mild), states [place] x2 (2000 & 2016), DVT RIGHT LEG, ENVIRONMENTAL ALLERGIES, SCAR TISSUE ON LIVER, BACK PAIN, STATES TOLD STAGE 2 KIDNEY DISEASE BUT IMPROVED., STATES DIFFICULTY WALKING-HAS BAD BALANCE AND USES WALKER., HX OF UTI'S. Last Myocardial Infarction Date:: OCTOBER 2016 History of Any Multi-Drug Resistant Organisms: None Reported Past Surgical History: Back Surgery, Bariatric Surgery, Coronary Bypass/CABG, Heart Catheterization With Stent, Orthopedic Surgery Additional Past Surgical History / Comment(s): surgical support of uterus, intestinal bypass- GASTRIC SLEEVE, wrist surgery, cyctocele and left ovary removed , arthroscopy knee surgery, right knee, anterior cervical discectomy with fusion, triple heart bypass (2000) , liver biopsy, , bilateral knee replacement. hip replacement, states heart cath with stent 2000 and 2nd stent inserted inside the previous stent in 2017., back surgery x3 with rods & screws. Past Anesthesia/Blood Transfusion Reactions: Previous Problems w/ Anesthesia Additional Past Anesthesia/Blood Transfusion Reaction / Comment(s): states difficult intubation- patient to bring papers. Date of Last Stent Placement:: 2016 Past Psychological History: Anxiety Past Alcohol Use History: Rare Past Drug Use History: None Reported - Past Family History Father Family Medical History: Cancer General Exam Limitations: no limitations General appearance: alert, in no apparent distress (Well-appearing 77-year-old female in no acute distress, though does appear moderately uncomfortable.) Neck exam: Present: normal inspection. Absent: tenderness Respiratory exam: Present: normal lung sounds bilaterally. Absent: respiratory distress, wheezes, rales, rhonchi, stridor Cardiovascular Exam: Present: regular rate, normal rhythm, normal heart sounds. Absent: systolic murmur, diastolic murmur, rubs, gallop, clicks GI/Abdominal exam: Present: soft, normal bowel sounds. Absent: distended, tenderness, guarding, rebound, rigid Left Shoulder Exam: Present: normal inspection, tenderness over AC joint. Absent: full ROM (Abduction slightly limited due to pain.), swelling, deformity Upper Arm exam: Present: normal inspection, tenderness. Absent: full ROM, swelling, deformity, crepidus, dislocation Elbow exam: Present: normal inspection, tenderness. Absent: full ROM, tenderness over radial head Forearm Wrist exam: Present: tenderness, deformity (baseline for patient). Absent: full ROM, tenderness over anatomical snuff box, pain with axial thumb loading Hand Wrist exam: Present: normal inspection, full ROM, ecchymosis (dorsal surface, 2nd metacarpal) Vascular: Present: normal capillary refill, radial pulse. Absent: vascular compromise, Pallo Neurological exam: Present: alert, oriented X3 Psychiatric exam: Present: normal affect, normal mood Course Vital Signs 07/28/22 17:00 Temperature 97.5 F L Pulse Rate 71 Respiratory 20 Rate Blood Pressure 195/91 O2 Sat by Pulse 99 Oximetry - Reevaluation(s) Reevaluation #1: 07/28/22 20:00 Upon reassessment, patient reports some improvement with [place]. Will be given one more dose prior to departure. ROM improved. Corky wrap applied to the left wrist. Explained that she likely would be more sore tomorrow from her fall. She is already scheduled to see her PCP therefore follow-up is established. Procedures - Orthopedic Splinting/Casting Injury #1 Side: left Upper Extremity Injury Location: wrist Upper Extremity Immobilizer: Corky wrap (Neurovascular status intact after Corky wrap applied. Cap refill less than 3 seconds.) Medical Decision Making - Medical Decision Making This is a pleasant 77-year-old female with multiple medical co-morbidities who presents to the emergency department for evaluation of injuries sustained to the left arm in a trip and fall today. Reports previous injury to the left wrist resulting in surgery; deformity baseline- it is not more swollen or worsened in appearance per patient. Does have left forearm and left upper arm pain upon palpation. Somewhat limited ROM the left shoulder due to pain, though this improved throughout her stay. No injury to head neck or back. Patient given [place] for discomfort with some improvement. X-rays of the left shoulder, elbow and wrist were obtained showing chronic degenerative changes, along with concern for ligamentous injury in left the wrist. Corky wrap applied. Patient instructed to follow up tomorrow with PCP as scheduled and to discuss need for orthopedic evaluation from there. Prescribed [place] for pain. Cautioned of the sedative properties. Return parameters discussed in detail. Patient verbalizes understanding and agrees with this plan. Attending: Vinicius. Was pt. sent in by a medical professional or institution? @ -No Did you speak to anyone other than the patient for history? @ -No Did you review nursing and triage notes? @ -Yes, agree Were old charts reviewed? @ -No Differential Diagnosis? @ -Sprain of the left wrist, fracture of distal radius or ulna, shoulder separation, rotator cuff injury, this is not meant to be an exhaustive list EKG interpreted by me (3pts min.)? @ -Not applicable X-rays interpreted by me (1pt min.)? @ -X-rays interpreted by me under the guidance of my attending CT interpreted by me (1pt min.)? @ -Not applicable U/S interpreted by me (1pt. min.)? @ -Not applicable What testing was considered but not performed? (CT, X-rays, U/S, labs)? Why? @ -Considered CT brain, however patient denies any injury to her head in fall. What meds were considered but not given? Why? @ -Anti-inflammatory medication was considered, however patient takes blood thinning medicines and was recently prescribed an anti-inflammatory medicine by her PCP but is unsure of what it is. Did you discuss the management of the patient with other professionals? @ -None Did you reconcile home meds? @ -No Was smoking cessation discussed for >3mins.? @ -No Was critical care preformed (if so, how long)? @ -No Were there social determinants of health that impacted care today? How? (Homelessness, low income, unemployed, alcoholism, drug addiction, transportation, low edu. Level, literacy, decrease access to med. care, long term, rehab)? @ -No Was there de-escalation of care discussed even if they declined? (Discuss DNR or withdrawal of care, Hospice)? @ -No What co-morbidities impacted this encounter? (DM, HTN, Smoking, COPD, CAD, Cancer, CVA, Hep., AIDS, mental health diagnosis, sleep apnea, morbid obesity)? @ -CAD, diabetes, hypertension, and osteoarthritis Was patient admitted / discharged? @ -Discharged Undiagnosed new problem with uncertain prognosis? @ -None Drug Therapy requiring intensive monitoring for toxicity (Heparin, Nitro, Insulin, Cardizem)? @ -None Were any procedures done? @ -Corky wrap applied to left wrist Diagnosis/symptom? @ -Left wrist sprain Acute, or Chronic, or Acute on Chronic? @ -Acute Uncomplicated (without systemic symptoms) or Complicated (systemic symptoms)? @ -Uncomplicated Side effects of treatment? @ -Constipation and Sedation side effects of [place] discussed. Exacerbation, Progression, or Severe Exacerbation] @ -No Poses a threat to life or bodily function? @ -No Diagnosis/symptom? @ -Left arm pain Acute, or Chronic, or Acute on Chronic? @ -Acute Uncomplicated (without systemic symptoms) or Complicated (systemic symptoms)? @ -Complicated Side effects of treatment? @ -None Exacerbation, Progression, or Severe Exacerbation] @ -Not applicable Poses a threat to life or bodily function? @ -No Diagnosis/symptom? @ -Fall Acute, or Chronic, or Acute on Chronic? @ -Acute Uncomplicated (without systemic symptoms) or Complicated (systemic symptoms)? @ -Uncomplicated Side effects of treatment? @ -None Exacerbation, Progression, or Severe Exacerbation] @ -No Poses a threat to life or bodily function? @ -No - Radiology Data Radiology results: report reviewed, image reviewed Interpreted by me: Per my interpretation, x-ray of the left shoulder shows no evidence of osseous deformity or dislocation. X-ray of the left elbow shows no fracture. X-ray of the left wrist shows chronic changes with no evidence of acute fracture. X-ray of the left shoulder was obtained. Report was reviewed in its entirety. Impression per Dr. Kim as degenerative changes of the left shoulder joint without evidence for acute osseous abnormality. X-ray of the left elbow was obtained. Report was reviewed in its entirety. Impression per Dr. Kim is #1. No evidence of acute displaced fracture or dislocation. #2. Sclerotic appearance of the lateral condyle, this is favored to represent a remote injury with superimposed osteoarthritis. Correlate with point tenderness. X-ray of the left wrist was obtained. Report was reviewed in its entirety. Impression per Dr. Kim's #1. No evidence for acute fracture or dislocation. #2. Widening of the scapholunate interval concerning for ligamentous injury. #3. Diffuse soft tissue swelling of the wrist, concerning for underlying soft tissue injury. #4. Remote fracture of the distal radius. Disposition Clinical Impression: Left wrist sprain, Left arm pain, Fall Disposition: HOME SELF-CARE Condition: Stable Instructions (If sedation given, give patient instructions): Wrist Sprain (ED) Additional Instructions: RICE (rest, ice= 20 minutes per hour over top corky wrap, compression=corky wrap, elevation= affected extremity while at rest) [place] is prescribed for more severe pain. Do not take additional Tylenol within 8 hours of taking this medicine. [place] may make you groggy so do not drive. Discuss your dictation regimen with your PA at your follow-up appointment. Return to the emergency department with any new, worsening, or concerning symptoms. Prescriptions: HYDROcodone/APAP 5-325MG [[place] 5] 1 each PO Q6HR PRN #12 tab PRN Reason: Pain Is patient prescribed a controlled substance at d/c from ED?: Yes When asked, does pt state using other controlled substances?: No If prescribed controlled substance>3 days was MAPS reviewed?: Prescribed <3 Days If opioid is for acute pain is fill amount 7 days or less?: Yes If Rx opioid, was Start Talking consent form obtained?: Yes Referrals: Brandon Wu DO [Primary Care Provider] - 1-2 days Time of Disposition: 20:19
== END 2022-07-28 20:24 | disposition home or self-care (01) ==
LOC: EC 16:45
DX: S63.502A Unspecified sprain of left wrist, initial encounter (principal); J45.909 Unspecified asthma, uncomplicated; I11.9 Hypertensive heart disease without heart failure; I25.10 Atherosclerotic heart disease of native coronary artery without angina pectoris; E11.9 Type 2 diabetes mellitus without complications; I25.2 Old myocardial infarction; F41.9 Anxiety disorder, unspecified; Z79.51 Long term (current) use of inhaled steroids; Z79.01 Long term (current) use of anticoagulants; Z79.899 Other long term (current) drug therapy; Z88.2 Allergy status to sulfonamides; Z88.5 Allergy status to narcotic agent; Z91.041 Radiographic dye allergy status; Z91.040 Latex allergy status; Z88.6 Allergy status to analgesic agent; Z91.018 Allergy to other foods; Z88.8 Allergy status to other drugs, medicaments and biological substances; W01.0XXA Fall on same level from slipping, tripping and stumbling without subsequent striking against object, initial encounter
CPT/HCPCS: 29125; 99284

== ENCOUNTER → 2022-08-05 | Outpatient (CLI) | payer MEDICARE ==
--- NOTE | 2022-08-05 11:16 | XR ---
EXAMINATION TYPE: XR wrist complete LT DATE OF EXAM: 08/05/2022 10:48 AM INDICATION: Patient age:Female; 77 years old; Reason for study: [id number] SLIP/FALL,LT WRIST PAIN; [facility]. COMPARISON: Left wrist radiograph 07/28/2022 TECHNIQUE: PA, oblique, lateral projections of the left wrist. FINDINGS: Diffuse bone demineralization limits evaluation. No acute fracture or dislocation. Remote f racture of the distal radius with callus summation. Stable well-corticated density adjacent to the ul ayad styloid. Degenerative changes of the first carpometacarpal joint. Asymmetric joint space narrowin g with subchondral spurs of the scaphoid and radius at the radiocarpal joint are demonstrated. There is again abnormal widening of the scapholunate interval. Similar soft tissue swelling of the wrist. IMPRESSION: 1. No acute osseous pathology. 2. Similar widening of the scapholunate interval concerning for ligamentous injury. 3. Diffuse soft tissue swelling of the wrist again demonstrated. 4. Remote fracture of the distal radius.
== END | disposition home or self-care (01) ==
LOC: RADXRYALE 10:33
PROVIDERS: ATTEND Physician Assistant Medical
DX: M79.89 Other specified soft tissue disorders (principal); M25.532 Pain in left wrist; W01.0XXA Fall on same level from slipping, tripping and stumbling without subsequent striking against object, initial encounter

== ENCOUNTER 2024-04-14 06:42 | Day surgery (SDC) | payer MEDICARE ==
[~2024-04-14 06:42] MED LIST changes: -DEXAMETHASONE SOD PHOSPHATE 10 MG/ML 1 ML VIAL IV ONE; -HYDROmorphone 0.5 MG/0.5 ML SYRINGE IVP PRN; -LIDOCAINE 1% 20 ML VIAL (10MG/ML) FOR IV START INTRADERMA PRN; -MIDAZOLAM 2 MG/2 ML VIAL IV PRN; -ONDANSETRON 4 MG/2 ML VIAL IVP ONE; -SCOPOLAMINE 1.5MG/72HR PATCH TRANSDERM ONE; -ceFAZolin IN SWFI 2 GM/20 ML SYRINGE IVP ONE
[2024-04-14] MEDS: LACTATED RINGERS 1,000 ML IV ONE (07:25)
--- NOTE | 2024-04-14 07:33 | P.GSHP ---
History of Present Illness H&P Date: 04/14/24 CHIEF COMPLAINT: GI bleed HISTORY OF PRESENT ILLNESS: The patient is a 79-year-old female who presents GI bleed over 1 month. Upper and lower endoscopy were offered for further evaluation and management. PAST MEDICAL HISTORY: Please see list. PAST SURGICAL HISTORY: Please see list. MEDICATIONS: Please see list. ALLERGIES: Please see list. SOCIAL HISTORY: No illicit drug use FAMILY HISTORY: No reports of Crohn disease or ulcerative colitis. REVIEW OF ORGAN SYSTEMS: CONSTITUTIONAL: No reports of fevers or chills. PHYSICAL EXAM: VITAL SIGNS: Stable GENERAL: Well-developed pleasant in no acute distress. HEENT: No scleral icterus. Extraocular movements grossly intact. Moist buccal mucosa. NECK: Supple without lymphadenopathy. CHEST: Unlabored respirations. Equal bilateral excursions. CARDIOVASCULAR: Regular rate and rhythm. Distal 2+ pulses. ABDOMEN: Soft, nondistended. MUSCULOSKELETAL: No clubbing, cyanosis, or edema. ASSESSMENT: 1. GI bleed PLAN: 1. Recommend proceeding with an upper and lower endoscopy Past Medical History Past Medical History: Asthma, Coronary Artery Disease (CAD), Chest Pain / Angina, Diabetes Mellitus, Deep Vein Thrombosis (DVT), GERD/Reflux, Hyperlipidemia, Hypertension, Myocardial Infarction ([place]), Renal Disease Additional Past Medical History / Comment(s): Lupus, spina bifida (mild), states [place] x2 (2000 & 2016), DVT RIGHT LEG, ENVIRONMENTAL ALLERGIES, SCAR TISSUE ON LIVER, BACK PAIN, STATES TOLD STAGE 2 KIDNEY DISEASE BUT IMPROVED., STATES DIFFICULTY WALKING-HAS BAD BALANCE AND USES WALKER., HX OF UTI'S. Last Myocardial Infarction Date:: OCTOBER 2016 History of Any Multi-Drug Resistant Organisms: None Reported Past Surgical History: Back Surgery, Bariatric Surgery, Coronary Bypass/CABG, Heart Catheterization With Stent, Joint Replacement, Orthopedic Surgery Additional Past Surgical History / Comment(s): surgical support of uterus, intestinal bypass- GASTRIC SLEEVE, wrist surgery, cyctocele and left ovary removed , arthroscopy knee surgery, right knee, anterior cervical discectomy with fusion, triple heart bypass (2000) , liver biopsy, , bilateral knee replacement. hip replacement, states heart cath with stent 2000 and 2nd stent inserted inside the previous stent in 2017., back surgery x3 with rods & screws. wandy knee replaced, Past Anesthesia/Blood Transfusion Reactions: Previous Problems w/ Anesthesia Additional Past Anesthesia/Blood Transfusion Reaction / Comment(s): states difficult intubation- patient to bring papers. Date of Last Stent Placement:: 2016 Smoking Status: Never smoker - Past Family History Father Family Medical History: Cancer Medications and Allergies Home Medications Medication Instructions Recorded Confirmed Type Budesonide-Formot 160-4.5 Mcg 2 puff INHALATION RT-BID 12/26/13 04/13/24 History [Symbicort 160-4.5 Mcg Inhaler] FLUoxetine HCL [PROzac] 20 mg PO TID 12/26/13 04/14/24 History Metoprolol Tartrate 50 mg PO BID 12/26/13 04/14/24 History allopurinoL [Allopurinol] 300 mg PO DAILY 12/26/13 04/14/24 History Nitroglycerin Sl Tabs [Nitrostat] 0.4 mg SUBLINGUAL Q5M PRN 09/05/17 04/13/24 Hi story Acetaminophen [Tylenol Extra 500 mg PO Q6H PRN 07/28/22 04/14/24 History Strength] Levothyroxine Sodium [Synthroid] 150 mcg PO MOTUWETHFRSA 07/28/22 04/14/24 History Meloxicam [Mobic] 15 mg PO DAILY PRN 07/28/22 04/13/24 History Semaglutide [Ozempic] 2 mg SQ MONDRAGON 08/02/22 04/13/24 History Allergies Allergy/AdvReac Type Severity Reaction Status Date / Time metoclopramide HCl Allergy Confusion Verified 04/13/24 11:07 [From Reglan] naproxen Allergy Swelling/It Verified 04/13/24 11:07 deann nickel [Nickel] Allergy Rash/Hives, Verified 04/13/24 11:07 Blisters oxybutynin [From Ditropan] Allergy Nausea & Verified 04/13/24 11:07 Vomiting pneumococcal vaccine Allergy Unknown Verified 04/13/24 11:07 tetanus and diphtheria Allergy Unknown Verified 04/13/24 11:07 toxoids [tetanus & diphtheria toxoids] theophylline Allergy Anaphylaxis Verified 04/13/24 11:07 tioconazole [From Monistat 1] Allergy Rash/Hives Verified 04/13/24 11:07 tolmetin sodium Allergy Rash/Hives Verified 04/13/24 11:07 [From Tolectin] atorvastatin [From Lipitor] AdvReac MUSCLE PAIN Verified 04/13/24 11:07 estrogens, conjugated AdvReac ALTERS Verified 04/13/24 11:07 [From Premarin] LIVER FUNCTION ezetimibe [From Zetia] AdvReac MUSCLE PAIN Verified 04/13/24 11:07 morphine AdvReac Confusion Verified 04/13/24 11:07 pravastatin [From Pravachol] AdvReac MUSCLE PAIN Verified 04/13/24 11:07 DIAL SOAP Allergy Unknown Rash/Hives Uncoded 04/13/24 11:07 MEDICAL TESING DYES Allergy Anaphylaxis Uncoded 04/13/24 11:07
[2024-04-14] MEDS ORDERED: LIDOCAINE 1% INJ 10MG/ML (20 ML MDV) ONE (07:35)
[2024-04-14] MEDS ORDERED: PROPOFOL 10 MG/ML 20 ML VIAL IV ONE (07:35)
[2024-04-14 07:36] VITALS: TEMP 97.3
[2024-04-14 07:42] LABS: Glucose,Whole Blood 93 mg/dL (70-110)
--- NOTE | 2024-04-14 07:52 | P.PCN ---
Date of Procedure: 04/14/24 Description of Procedure: PREOPERATIVE DIAGNOSIS: GI bleed Chronic NSAID use with Mobic POSTOPERATIVE DIAGNOSIS: Acute gastritis with bleeding Acute gastric ulcer with bleeding Diaphragmatic hiatal hernia OPERATION: Esophagogastroduodenoscopy with biopsies along esophagus, antrum and duodenum SURGEON: Christie Rivers MD ANESTHESIA: MAC. INDICATIONS: The patient is a 79-year-old female who presents with GI bleed. Benefits and risks of the procedure were described. Informed consent was obtained. DESCRIPTION: The patient was brought into the endoscopy suite and laid in the left lateral decubitus position. An Olympus gastroscope was passed along the posterior oropharynx down to the distal esophagus where the squamocolumnar junction was encountered at 34 cm from the incisors. The stomach was entered and bile reflux was found. Additional findings are listed below. Biopsies with cold forceps were obtained of the antrum. The first through third portion of the duodenum was examined. Retroflexion of the scope confirmed Hill grade 3 lower esophageal valve. The squamocolumnar junction demonstrated LA grade B erosive esophagitis. The stomach was desufflated. The patient tolerated the procedure well. FINDINGS: Squamocolumnar junction 34 cm from the incisors. Diaphragmatic hiatus at 35 cm. Hiatal hernia, 1 cm Hill grade 3 lower esophageal valve. LA grade B erosive esophagitis. Biopsies obtained Biopsies obtained of the duodenum. Acute gastritis of the antrum and acute ulcer of the angulus incisura, 2 mm x 2 with biopsies obtained. RECOMMENDATIONS: Discontinue Mobic and NSAIDs Omeprazole 40 mg daily Carafate 1 g twice daily Treatment timeline 14 days to 21 days
[2024-04-14 08:24] VITALS: RESP 16
--- NOTE | 2024-04-14 08:28 | P.PCN ---
Date of Procedure: 04/14/24 Description of Procedure: PREOPERATIVE DIAGNOSIS: Gastrointestinal bleeding POSTOPERATIVE DIAGNOSIS: Severe sigmoid diverticulosis Arteriovenous malformation of the cecum, hepatic flexure, transverse colon OPERATION: Colonoscopy to the ileocecal valve and appendiceal orifice, cecum Colonoscopy with control of bleeding/ablation using ERBE SURGEON: Christie Rivers MD. ANESTHESIA: MAC. INDICATIONS: The patient is an 79-year-old female presents with GI bleed. Benefits and risks were described and informed consent was obtained. DESCRIPTION OF PROCEDURE: The patient had undergone GoLytely prep. The patient had been brought into the operating room and laid in the left lateral decubitus position. After adequate intravenous sedation, the rectum was examined with 2% lidocaine jelly. External hemorrhoids were encountered. The rectal tone was within normal limits. No lesions were palpated in the rectal vault. An Olympus colonoscope was advanced until the cecum, ileocecal valve and appendiceal orifice were clearly viewed. The prep was fair. Sigmoid diverticulosis was encountered. Multiple arteriovenous malformations were identified and ablated using ERBE. Nofocal colitis was found. Retroflexion of the scope demonstrated grade 2 internal hemorrhoids without active bleeding or inflammation. The colon was desufflated. The patient had tolerated the procedure well. Withdrawal time was over 6 minutes. FINDINGS: Aronchick preparation quality scale 2+ (1-5) Internal hemorrhoids, grade 2 External hemorrhoids, grade 2. Arteriovenous malformations, multiple Sigmoid diverticulosis, severe with redundancy requiring abdominal wall pressure Control of bleeding x 4 using ERBE for arteriovenous malformation: - Ablation at cecum/ileocecal valve 3 mm - Ablation at hepatic flexure, 3 mm - Ablation at transverse colon x 2, 4 mm No focal colitis. RECOMMENDATIONS: Discontinue all NSAIDs Recommend no future anticoagulation due to AVMs and high risk of bleeding Plan - Discharge Summary Discharge Rx Participant: No New Discharge Prescriptions: New Sucralfate [Carafate] 1 gm PO BID #30 tablet Omeprazole [PriLOSEC] 40 mg PO DAILY #14 cap Continue allopurinoL [Allopurinol] 300 mg PO DAILY FLUoxetine HCL [PROzac] 20 mg PO TID Budesonide-Formot 160-4.5 Mcg [Symbicort 160-4.5 Mcg Inhaler] 2 puff INHALATION RT-BID Metoprolol Tartrate 50 mg PO BID Nitroglycerin Sl Tabs [Nitrostat] 0.4 mg SUBLINGUAL Q5M PRN PRN Reason: Chest Pain Semaglutide [Ozempic] 2 mg SQ MONDRAGON Levothyroxine Sodium [Synthroid] 150 mcg PO MOTUWETHFRSA Acetaminophen [Tylenol Extra Strength] 500 mg PO Q6H PRN PRN Reason: Pain Or Fever > 100.5 Discontinued Meloxicam [Mobic] 15 mg PO DAILY PRN PRN Reason: Muscle Pain Discharge Medication List Budesonide-Formot 160-4.5 Mcg [Symbicort 160-4.5 Mcg Inhaler] 2 puff INHALATION RT-BID 12/26/13 [History] FLUoxetine HCL [PROzac] 20 mg PO TID 12/26/13 [History] Metoprolol Tartrate 50 mg PO BID 12/26/13 [History] allopurinoL [Allopurinol] 300 mg PO DAILY 12/26/13 [History] Nitroglycerin Sl Tabs [Nitrostat] 0.4 mg SUBLINGUAL Q5M PRN 09/05/17 [History] Acetaminophen [Tylenol Extra Strength] 500 mg PO Q6H PRN 07/28/22 [History] Levothyroxine Sodium [Synthroid] 150 mcg PO MOTUWETHFRSA 07/28/22 [History] Semaglutide [Ozempic] 2 mg SQ MONDRAGON 08/02/22 [History] Omeprazole [PriLOSEC] 40 mg PO DAILY #14 cap 04/14/24 [Rx] Sucralfate [Carafate] 1 gm PO BID #30 tablet 04/14/24 [Rx] Follow up Appointment(s)/Referral(s): Christie Rivers MD [STAFF PHYSICIAN] - 04/14/24 10:15 am Patient Instructions/Handouts: Diverticulosis (DC), Arteriovenous Malformation (GEN), Peptic Ulcer (IP), Safe Use of NSAIDs (DC) Activity/Diet/Wound Care/Special Instructions: Avoid Mobic and ibuprofen including NSAIDs Discharge Disposition: HOME SELF-CARE
--- NOTE | 2024-04-14 08:29 | P.PN ---
Progress Note - Text Progress Note Date: 04/14/24 Patient reported on exam new abdominal wall hernia in the past 1 week. Patient to follow-up for abdominal wall hernia in the office.
[2024-04-14] MEDS: fentaNYL (PF) 50 MCG/ML 2 ML AMP IVP PRN (08:42)
[2024-04-14 09:29] VITALS: BP 165/78; PULSE 63
== END 2024-04-14 09:48 | disposition home or self-care (01) ==
LOC: ORWHC2ENDO 06:42
PROVIDERS: ATTEND Surgery Plastic and Reconstructive Surgery
DX: K92.2 Gastrointestinal hemorrhage, unspecified
CPT/HCPCS: 43239; 45388; 88305; 88342

== ENCOUNTER → 2025-01-10 | Outpatient (CLI) | payer MEDICARE ==
[2025-01-10 15:12] LABS: HCT 47.9 % (37.2-46.3); HGB 15.1 g/dL (12.0-15.0); MCH 33.3 pg (27.0-32.0); MCHC 31.5 g/dL (32.0-37.0); MCV 105.7 FL (80.0-97.0); Mean Platelet Volume 10.5 FL (9.5-12.2); NRBC Per 100 WBC 0 X 10*3/uL (0.00-0.01); Platelet Count 188 X 10*3/uL (140-440); RBC 4.53 X 10*6/uL (4.10-5.20); RDW 13.2 % (11.5-14.5); WBC 9.09 X 10*3/uL (4.50-10.00)
[2025-01-10 16:44] LABS: Basophils # (A) 0.06 X 10*3/uL (0.00-0.10); Basophils % (A) 0.7 %; Elliptocytes 2+ (None Seen); Eosinophils # (A) 0.37 X 10*3/uL (0.04-0.35); Eosinophils % (A) 4.1 %; Lymphocytes # (A) 2.21 X 10*3/uL (0.90-5.00); Lymphocytes % (A) 24.3 %; Macrocytosis (M) 2+ (None Seen); Monocytes # (A) 0.61 X 10*3/uL (0.20-1.00); Monocytes % (A) 6.7 %; Neutrophils # (A) 5.81 X 10*3/uL (1.80-7.70); Neutrophils % (A) 63.9 %
== END | disposition home or self-care (01) ==
LOC: LABWHC1 10:21
PROVIDERS: ATTEND Family Medicine
DX: D51.9 Vitamin B12 deficiency anemia, unspecified (principal)
CPT/HCPCS: 36415; 82607; 85025